=== PATIENT | male | born 1955 | race Caucasian/White ===

== ENCOUNTER → 2016-10-21 | Outpatient (CLI) | payer OTHER ==
--- NOTE | 2016-10-21 12:54 | RAD ---
Indication lung malignancy. PET/CT was performed from the skull to the proximal thigh. CT was performed primarily for attenuation and localization purposes as opposed to primary diagnostic purposes. The blood sugar during the examination was 106. 12.5 mCi of FDG was administered. The history of radiation and chemotherapy 5 years ago for lung malignancy has been provided. No prior imaging is available. On CT the visualized brain appears unremarkable. No abnormality is seen in the neck. There are moderately advanced underlying emphysematous changes. There are pleural parenchymal changes in the right upper lobe posteriorly which are likely post therapeutic. A dominant soft tissue mass in either lung is not seen. Significant hilar or mediastinal adenopathy is not appreciated on CT. A significant finding is not seen in the abdomen or pelvis. The FDG is physiologically distributed in the visualized brain. There is a mildly avid FDG lymph node at the base of the right neck, at the thoracic inlet. Maximum SUV approximately 3.1. This may be reactive in nature. The etiology, ultimately, it is indeterminate. Best demonstrated on the uncorrected images is a small focus of FDG activity in the right hilum compatible with a mild to moderate FDG activity in a hilar node. Maximum SUV is approximately 2.3.. The finding is indeterminate. The ana activity may be [employer] of benign or malignant disease. There is some increased activity, diffusely, associated with the esophagus. This seems most pronounced at the GE junction. The etiology is unclear. Inflammation is not excluded. If esophageal pathology is suspect endoscopy should be considered. The radiopharmaceutical is physiologically distributed in the abdomen and pelvis. In the area of scarring, in the parahilar distribution and in the right upper lobe there is mildly avid FDG activity. Maximum SUV is approximately 2.3. This is likely post therapeutic and [employer] of scar IMPRESSION: Mildly avid right hilar lymph node. The etiology is unclear. This may be [employer] of benign or malignant disease. Post therapeutic changes, best demonstrated on CT, in the right upper lobe. The area of scarring in the right perihilar area is minimally FDG avid. Underlying emphysematous changes. Slightly increased FDG activity throughout the esophagus most pronounced at the GE junction. If pathology associated with a esophagus is clinically suspect endoscopy should be considered Mildly avid FDG node at the right thoracic inlet is indeterminate
== END | disposition home or self-care (01) ==
LOC: PETSC 10:46
PROVIDERS: ATTEND Internal Medicine
DX: R93.8 Abnormal findings on diagnostic imaging of other specified body structures (principal); C34.90 Malignant neoplasm of unspecified part of unspecified bronchus or lung
CPT/HCPCS: 78815; A9552